=== PATIENT | female | born 1995 | race American Indian/Alaskan Native ===

== ENCOUNTER 2017-06-25 20:56 | Emergency (ER) | payer MEDICAID ==
[2017-06-25 21:37] VITALS: BP 142/79
--- NOTE | 2017-06-25 22:22 | EDM.PDOC ---
ED HPI GENERAL MEDICAL PROBLEM - General Chief Complaint: ENT Problem Stated Complaint: BROKEN TOOTH Time Seen by Provider: 06/25/17 22:22 Source of Information: Reports: Patient History Limitations: Reports: No Limitations - History of Present Illness INITIAL COMMENTS - FREE TEXT/NARRATIVE: pt arrived after breaking her upper left incisor. The tooth has a filling in it and looks frail. The gum above it is tender, Onset: Sudden Duration: Hour(s):, Other ( broken tooth) Location: Reports: Face Associated Symptoms: Reports: No Other Symptoms tooth Pain Score (Numeric/FACES): 4 - Related Data Allergies Allergy/AdvReac Type Severity Reaction Status Date / Time nortriptyline Allergy Hives Verified 06/25/17 21:59 Home Meds: Home Meds Albuterol [Ventolin HFA] 2 puff INH ASDIRECTED PRN 09/01/16 [History] Past Medical History Other HEENT History: History of strep throat many times each year. Respiratory History: Reports: Asthma Gastrointestinal History: Reports: Cholelithiasis Neurological History: Reports: Migraines Psychiatric History: Reports: Anxiety, Depression Endocrine/Metabolic History: Reports: Obesity/BMI 30+ - Past Surgical History HEENT Surgical History: Reports: Adenoidectomy, Myringotomy w Tube(s), Tonsillectomy GI Surgical History: Reports: Cholecystectomy Social & Family History - Family History Cardiac: Reports: Other (See Below) Other Cardiac Family History: mom is currently wearing a heart monitor because of some "episodes" Respiratory: Reports: Asthma : Reports: Renal Disease/Insufficiency OBGYN: Reports: Musculoskeletal: Reports: Arthritis Neurological: Reports: Vertigo Psychiatric: Reports: Bipolar Hematologic: Reports: Anemia Immunologic: Reports: SLE, Solid Organ Transplant Oncologic: Reports: Breast, Lymphoma, Uterine - Tobacco Use Smoking Status *Q: Current Every Day Smoker Years of Tobacco use: 1 Packs/Tins Daily: 0.5 Second Hand Smoke Exposure: No - Caffeine Use Caffeine Use: Reports: Soda - Recreational Drug Use Recreational Drug Use: No ED ROS ENT - Review of Systems Review Of Systems: See Below Constitutional: Reports: No Symptoms HEENT: Reports: Other (pt broke her upper left incisor. ) Respiratory: Reports: No Symptoms Cardiovascular: Reports: No Symptoms Endocrine: Reports: No Symptoms GI/Abdominal: Reports: No Symptoms : Reports: No Symptoms Musculoskeletal: Reports: No Symptoms Skin: Reports: No Symptoms ED EXAM, ENT - Physical Exam Exam: See Below Text/Narrative:: pt arrived with a painful left upper incisor. This broke in the pm. Exam Limited By: No Limitations General Appearance: Alert, Anxious, Mild Distress Ears: Normal TMs Nose: Normal Inspection Mouth/Throat: Other (pt broke her left upper incisor. The gum above the tooth looks quite red. ) Head: Atraumatic Neck: Normal Inspection Respiratory/Chest: No Respiratory Distress Cardiovascular: Regular Rate, Rhythm GI/Abdominal: Soft, Non-Tender Course - Vital Signs Last Recorded V/S: Last Vital Signs Temp 35.6 C 06/25/17 22:04 Pulse 76 06/25/17 22:04 Resp 16 06/25/17 22:04 BP 142/79 H 06/25/17 22:04 Pulse Ox 97 06/25/17 22:04 Departure - Departure Time of Disposition: 22:23 Disposition: Home, Self-Care 01 Condition: Fair Clinical Impression: Broken tooth - Discharge Information Instructions: Tooth Injuries, [id number] Referrals: PCP,None [Primary Care Provider] - Forms: ED Department Discharge Care Plan Goals: pt arrived with a broken tooth which looks quite frail-- appt tomorrow at the dental clinic. amoxicillin 500mg tid, norco 5/325 q6h prn for pain.
== END 2017-06-25 22:34 | disposition home or self-care (01) ==
LOC: JP.ED 20:56
DX: K03.81 Cracked tooth (principal); F17.210 Nicotine dependence, cigarettes, uncomplicated; J45.909 Unspecified asthma, uncomplicated; Z88.8 Allergy status to other drugs, medicaments and biological substances
CPT/HCPCS: 99283

== ENCOUNTER 2017-08-02 07:33 | Day surgery (SDC) | payer MEDICAID ==
[2017-08-02] MEDS ORDERED: Sodium Chloride 0.9% 1,000 ML IV SCH (08:00)
[2017-08-02] MEDS ORDERED: fentaNYL 100 MCG/2 ML SDV ONE (09:57)
[2017-08-02] MEDS ORDERED: Propofol 200 MG/20 ML SDV ONE (09:57)
[2017-08-02] MEDS ORDERED: Midazolam 1 MG/ML 2 ML SDV ONE (09:58)
--- NOTE | 2017-08-02 11:17 | OR ---
DATE OF PROCEDURE: 08/02/2017 PROCEDURE: Esophagogastroduodenoscopy. FINDINGS: 1. Very mild inflammation in the GE junction. 2. No other abnormalities. COMPLICATIONS: None. [employer] TESTING: None. ANESTHESIA: MAC. PREOPERATIVE DIAGNOSIS: Epigastric pain. POSTOPERATIVE DIAGNOSIS: Epigastric pain. RISKS: Risks, benefits, alternatives, limitations including, but not limited to infection, bleeding, and perforation were explained to the patient and her family and wished to proceed. PROCEDURE IN DETAIL: The patient was placed in the left lateral decubitus position. The EGD scope was introduced, advanced atraumatically to the second part of the duodenum. No duodenitis. No ulcers. No abnormality in the gastric cardia, body, or antrum. No gastritis. On retroflexion, there was no hiatal hernia. At the GE junction, there was very mild inflammation consistent with reflux disease. This was biopsied multiple times using cold biopsy forceps. The esophagus was normal. The patient tolerated the procedure well. James Shanks MD /[id number]
[2017-08-02 11:36] VITALS: BP 114/62
== END 2017-08-02 11:55 | disposition home or self-care (01) ==
LOC: JP.SDS 07:33
PROVIDERS: ATTEND Surgery
DX: K29.70 Gastritis, unspecified, without bleeding (principal); K20.9 Esophagitis, unspecified; J45.909 Unspecified asthma, uncomplicated; E66.9 Obesity, unspecified; F17.210 Nicotine dependence, cigarettes, uncomplicated; Z88.8 Allergy status to other drugs, medicaments and biological substances
CPT/HCPCS: 43239; J2250; J2704; J3010; J7040; 88305

== ENCOUNTER 2017-09-09 18:23 | Emergency (ER) | payer MEDICAID ==
[2017-09-09 18:42] VITALS: BP 115/58
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
== END 2017-09-09 19:10 | disposition home or self-care (01) ==
LOC: JP.ED 18:23
DX: S16.1XXA Strain of muscle, fascia and tendon at neck level, initial encounter (principal); S20.229A Contusion of unspecified back wall of thorax, initial encounter; S09.90XA Unspecified injury of head, initial encounter; Z88.8 Allergy status to other drugs, medicaments and biological substances; Z79.899 Other long term (current) drug therapy; F17.210 Nicotine dependence, cigarettes, uncomplicated; W00.0XXA Fall on same level due to ice and snow, initial encounter
CPT/HCPCS: 99283

== ENCOUNTER 2017-09-12 17:05 | Emergency (ER) | payer MEDICAID ==
[2017-09-12 17:22] VITALS: BP 149/77
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
== END 2017-09-12 18:02 | disposition home or self-care (01) ==
LOC: JP.ED 17:05
DX: S06.0X9A Concussion with loss of consciousness of unspecified duration, initial encounter (principal); J45.909 Unspecified asthma, uncomplicated; Z88.8 Allergy status to other drugs, medicaments and biological substances; Z79.899 Other long term (current) drug therapy; W19.XXXA Unspecified fall, initial encounter
CPT/HCPCS: 70450; 99284-25

== ENCOUNTER 2017-12-11 18:43 | Emergency (ER) | payer MEDICAID ==
[2017-12-11 18:56] VITALS: BP 123/61
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
[2017-12-11] MEDS ORDERED: Acetaminophen 500 MG Tab PO ONE (20:14)
== END 2017-12-11 20:59 | disposition home or self-care (01) ==
LOC: JP.ED 18:43
DX: M79.622 Pain in left upper arm (principal); M79.621 Pain in right upper arm; R23.0 Cyanosis; J45.909 Unspecified asthma, uncomplicated; K21.9 Gastro-esophageal reflux disease without esophagitis; F41.9 Anxiety disorder, unspecified; F32.9 Major depressive disorder, single episode, unspecified; E66.9 Obesity, unspecified; F17.210 Nicotine dependence, cigarettes, uncomplicated; Z79.899 Other long term (current) drug therapy; Z88.8 Allergy status to other drugs, medicaments and biological substances; Z87.440 Personal history of urinary (tract) infections; Z90.49 Acquired absence of other specified parts of digestive tract
CPT/HCPCS: 36415; 36600; 80048; 82803; 85025; 85379; 99284; A9270

== ENCOUNTER 2018-03-03 17:20 | Emergency (ER) | payer MEDICAID ==
[2018-03-03 17:26] VITALS: BP 135/47
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
--- NOTE | 2018-03-04 08:42 | CR ---
CHEST: 2 view CLINICAL HISTORY:Left rib injuries COMPARISON:10/23/2015 FINDINGS: Heart size and pulmonary vascular normal. No infiltrate effusion or pneumothorax is seen. No rib fractures identified on limited study.. IMPRESSION: No acute cardiopulmonary process
--- NOTE | 2018-03-04 09:14 | CR ---
Nasal Bone Min 3V CLINICAL HISTORY: Blunt trauma FINDINGS: No fractures identified. Paranasal sinuses are clear. Anterior nasal spine is intact. IMPRESSION: Negative
== END 2018-03-03 18:53 | disposition home or self-care (01) ==
LOC: JP.ED 17:20
DX: S29.9XXA Unspecified injury of thorax, initial encounter (principal); S50.12XA Contusion of left forearm, initial encounter; S50.11XA Contusion of right forearm, initial encounter; S80.11XA Contusion of right lower leg, initial encounter; S00.33XA Contusion of nose, initial encounter; F17.210 Nicotine dependence, cigarettes, uncomplicated; Z88.8 Allergy status to other drugs, medicaments and biological substances; Y04.0XXA Assault by unarmed brawl or fight, initial encounter
CPT/HCPCS: 70160; 70160-26; 71046; 71046-26; 99285

== ENCOUNTER 2019-02-17 23:57 | Emergency (ER) | payer MEDICAID ==
[2019-02-18] MEDS ORDERED: Ketorolac 60 MG/2 ML SDV IM ONE (00:39)
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
[2019-02-18 01:21] VITALS: BP 111/41
--- NOTE | 2019-02-18 03:11 | CRLCR ---
INDICATION: Chest pain TECHNIQUE: Chest radiograph 2 views COMPARISON: 03/03/18 FINDINGS: Mediastinum: The mediastinum is normal in appearance. The heart silhouette is normal in size and morphology. Lung: Both lungs are unremarkable in appearance. No sign of pleural effusion seen. No pneumothorax is identified. IMPRESSION: 1. No acute cardiopulmonary disease is seen. Dictated by: Gerald Zarate MD @ 02/18/2019 03:10:39 (Electronically Signed)
== END 2019-02-18 02:25 | disposition home or self-care (01) ==
LOC: JP.ED 23:57
DX: R07.89 Other chest pain (principal); F17.210 Nicotine dependence, cigarettes, uncomplicated; J45.909 Unspecified asthma, uncomplicated; K21.9 Gastro-esophageal reflux disease without esophagitis; Z79.899 Other long term (current) drug therapy; Z88.8 Allergy status to other drugs, medicaments and biological substances
CPT/HCPCS: 36415; 71046; 80053; 84484; 84703; 85025; 85379; 93005; 96372; 99285; J1885

== ENCOUNTER 2019-04-30 19:12 | Emergency (ER) | payer MEDICAID ==
[2019-04-30 19:45] VITALS: BP 122/69
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
== END 2019-04-30 19:55 | disposition home or self-care (01) ==
LOC: JP.ED 19:12
DX: L08.9 Local infection of the skin and subcutaneous tissue, unspecified (principal); F17.210 Nicotine dependence, cigarettes, uncomplicated; J45.909 Unspecified asthma, uncomplicated; E66.9 Obesity, unspecified; Z88.8 Allergy status to other drugs, medicaments and biological substances; Z79.51 Long term (current) use of inhaled steroids; Z98.890 Other specified postprocedural states; Z90.49 Acquired absence of other specified parts of digestive tract; Z68.41 Body mass index [BMI] 40.0-44.9, adult
CPT/HCPCS: 99282

== ENCOUNTER 2020-10-01 07:20 | Inpatient (IN) | payer MEDICAID ==
[2020-10-01] MEDS ORDERED: Misoprostol 50 MCG (1/2 of 100 MCG) Tab VAG ONE ×2 (07:31→13:10)
[2020-10-01] MEDS ORDERED: Sodium Chloride 0.9% 10 ML Syringe FLUSH PRN (08:12)
[2020-10-01] MEDS ORDERED: Penicillin G Potassium 5 MILLUNITS in Sodium Chloride 0.9% 100 ML IV ONE (08:30)
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
[2020-10-01] MEDS: Penicillin G Potassium 2.5 MILLUNITS in Sodium Chloride 0.9% 50 ML IV SCH ×3 (12:37→21:35)
--- NOTE | 2020-10-01 13:27 | PCM.PNLD ---
Labor Progress Note - VS & Meds Vital Signs: Last Vital Signs Temp 97.7 F 10/01/20 11:16 Pulse 52 L 10/01/20 11:16 Resp 18 10/01/20 11:16 BP 120/59 L 10/01/20 11:16 Pulse Ox 98 10/01/20 11:16 Active Medications: Current Medications Penicillin G Potassium 2.5 (millunits/ Sodium Chloride) 50 mls @ 100 mls/hr IV Q4H [place] Last Admin: 10/01/20 12:37 Dose: 100 mls/hr Documented by: Sodium Chloride (Saline Flush) 10 ml FLUSH ASDIRECTED PRN PRN Reason: Keep Vein Open Discontinued Medications Penicillin G Potassium 5 (millunits/ Sodium Chloride) 100 mls @ 200 mls/hr IV ONETIME ONE Stop: 10/01/20 08:59 Last Admin: 10/01/20 08:53 Dose: 200 mls/hr Documented by: Oxytocin/Sodium Chloride (Pitocin In Ns 20 Units/1,000 Ml) 20 unit in 1,000 mls @ 999 mls/hr IV ONETIME ONE; Protocol Stop: 10/01/20 11:00 Misoprostol (Cytotec) 50 mcg VAG ONETIME ONE Stop: 10/01/20 07:32 Last Admin: 10/01/20 08:23 Dose: 50 mcg Documented by: Misoprostol (Cytotec) 50 mcg VAG ONETIME ONE Stop: 10/01/20 13:11 Last Admin: 10/01/20 13:13 Dose: 50 mcg Documented by: - Uterine Contractions Uterine Monitoring Mode: External [place] Contraction Frequency (min): 1.5-2.5 Contraction Duration (sec): 50-60 Contraction Intensity: Mild to Moderate Uterine Resting Tone: Soft - Monitoring Monitor Mode: Doppler/Auscultation Heart Rate (FHR) Baseline: 125 Heart Rate (FHR) Variability: Moderate (6-25 bmp) Accelerations: Present, 15x15 Decelerations: None - Vaginal Exam Dilation (cm): 2 Effacement (Percent): 75 Station: 0 Cervical Position: Anterior Sterile Vaginal Exam Performed By: Megan Barba Vaginal Exam Comment: change since this morning. Baby is lower and cervix is anterior - Labor Progress (Free Text) Labor Progress: 10/01/20 Star has been up and about Has had two doses of PCN cervix starting to change anterior Plan repeat Miso dose at 50 mcg continue with ambulation after monitoring times one hour post dose. Plan for reassessment at 1730. AROM when able pain management per patient request Plan for vaginal delivery
[2020-10-01] MEDS ORDERED: fentaNYL 100 MCG/2 ML SDV IVPUSH PRN (18:33)
[2020-10-01] MEDS ORDERED: Ondansetron 4 MG/2 ML SDV IVPUSH PRN (19:54)
[2020-10-01] MEDS ORDERED: ePHEDrine 50 MG/ML SDV IVPUSH PRN (20:30)
[2020-10-01] MEDS ORDERED: Lactated Ringers 1,000 ML IV ONE (20:30)
--- NOTE | 2020-10-01 20:38 | PCM.PNLD ---
Labor Progress Note - VS & Meds Vital Signs: Last Vital Signs Temp 98.2 F 10/01/20 18:05 Pulse 70 10/01/20 18:57 Resp 18 10/01/20 18:57 BP 139/66 10/01/20 18:57 Pulse Ox 95 10/01/20 18:57 Active Medications: Current Medications Fentanyl (Sublimaze) 100 mcg IVPUSH Q1H PRN PRN Reason: Pain (moderate 4-6) Last Admin: 10/01/20 18:50 Dose: 100 mcg Documented by: Penicillin G Potassium 2.5 (millunits/ Sodium Chloride) 50 mls @ 100 mls/hr IV Q4H [place] Last Admin: 10/01/20 16:57 Dose: 100 mls/hr Documented by: Ondansetron HCl (Zofran) 4 mg IVPUSH Q4H PRN PRN Reason: Nausea/Vomiting Sodium Chloride (Saline Flush) 10 ml FLUSH ASDIRECTED PRN PRN Reason: Keep Vein Open Discontinued Medications Penicillin G Potassium 5 (millunits/ Sodium Chloride) 100 mls @ 200 mls/hr IV ONETIME ONE Stop: 10/01/20 08:59 Last Admin: 10/01/20 08:53 Dose: 200 mls/hr Documented by: Oxytocin/Sodium Chloride (Pitocin In Ns 20 Units/1,000 Ml) 20 unit in 1,000 mls @ 999 mls/hr IV ONETIME ONE; Protocol Stop: 10/01/20 11:00 Misoprostol (Cytotec) 50 mcg VAG ONETIME ONE Stop: 10/01/20 07:32 Last Admin: 10/01/20 08:23 Dose: 50 mcg Documented by: Misoprostol (Cytotec) 50 mcg VAG ONETIME ONE Stop: 10/01/20 13:11 Last Admin: 10/01/20 13:13 Dose: 50 mcg Documented by: - Uterine Contractions Uterine Monitoring Mode: External [place] Contraction Frequency (min): 1-3 Contraction Duration (sec): 50-70 Contraction Intensity: Moderate Uterine Resting Tone: Soft - Monitoring Monitor Mode: Doppler/Auscultation Heart Rate (FHR) Baseline: 125 Heart Rate (FHR) Variability: Moderate (6-25 bmp) Accelerations: Present, 15x15 Decelerations: None - Vaginal Exam Dilation (cm): 5 Effacement (Percent): 80 Station: 0 Cervical Position: Anterior Vaginal Exam Comment: SROM at approx 1800, clear fluid - Labor Progress (Free Text) Labor Progress: active labor now requesting an epidural for back labor Cat one strip, baseline FHT 140 Planning for vaginal delivery
[2020-10-01] MEDS ORDERED: Ropivacaine 100 ML ONE (21:36)
--- NOTE | 2020-10-02 00:22 | PCM.PNLD ---
Labor Progress Note - VS & Meds Vital Signs: Last Vital Signs Temp 98.2 F 10/01/20 18:05 Pulse 51 L 10/01/20 22:15 Resp 18 10/01/20 22:15 BP 111/52 L 10/01/20 22:15 Pulse Ox 98 10/01/20 22:15 Active Medications: Current Medications Ephedrine Sulfate (Ephedrine Sulfate) 10 mg IVPUSH ASDIRECTED PRN PRN Reason: Hypotension Fentanyl (Sublimaze) 100 mcg IVPUSH Q1H PRN PRN Reason: Pain (moderate 4-6) Last Admin: 10/01/20 18:50 Dose: 100 mcg Documented by: Penicillin G Potassium 2.5 (millunits/ Sodium Chloride) 50 mls @ 100 mls/hr IV Q4H [place] Last Admin: 10/01/20 21:35 Dose: 100 mls/hr Documented by: Ondansetron HCl (Zofran) 4 mg IVPUSH Q4H PRN PRN Reason: Nausea/Vomiting Last Admin: 10/01/20 20:36 Dose: 4 mg Documented by: Sodium Chloride (Saline Flush) 10 ml FLUSH ASDIRECTED PRN PRN Reason: Keep Vein Open Discontinued Medications Penicillin G Potassium 5 (millunits/ Sodium Chloride) 100 mls @ 200 mls/hr IV ONETIME ONE Stop: 10/01/20 08:59 Last Admin: 10/01/20 08:53 Dose: 200 mls/hr Documented by: Oxytocin/Sodium Chloride (Pitocin In Ns 20 Units/1,000 Ml) 20 unit in 1,000 mls @ 999 mls/hr IV ONETIME ONE; Protocol Stop: 10/01/20 11:00 Lactated Ringer's (Ringers, Lactated) 1,000 mls @ 999 mls/hr IV ONETIME ONE Stop: 10/01/20 21:30 Last Admin: 10/01/20 20:30 Dose: 999 mls/hr Documented by: Ropivacaine (Naropin 0.2%) Confirm Administered Dose 100 mls @ as directed .ROUTE .STK-MED ONE Stop: 10/01/20 21:37 Misoprostol (Cytotec) 50 mcg VAG ONETIME ONE Stop: 10/01/20 07:32 Last Admin: 10/01/20 08:23 Dose: 50 mcg Documented by: Misoprostol (Cytotec) 50 mcg VAG ONETIME ONE Stop: 10/01/20 13:11 Last Admin: 10/01/20 13:13 Dose: 50 mcg Documented by: - Uterine Contractions Uterine Monitoring Mode: External [place] Contraction Frequency (min): 2-3 Contraction Duration (sec): 50-60 Contraction Intensity: Moderate Uterine Resting Tone: Soft - Monitoring Monitor Mode: Doppler/Auscultation Heart Rate (FHR) Baseline: 125 Heart Rate (FHR) Variability: Moderate (6-25 bmp) Accelerations: Present, 15x15 Decelerations: None - Vaginal Exam Dilation (cm): 10 Effacement (Percent): 100 Station: 2 Cervical Position: Anterior Sterile Vaginal Exam Performed By: Megan Barba Vaginal Exam Comment: complete with a fair amount of bleeding - Labor Progress (Free Text) Labor Progress: started pushing with a fair amount of bleeding vaginally. Fetus unable to total pushing. heart tones dropped to the 90's for 3 minutes twice. O2 to mom positioned off her back. Stopped pushing and called a c section for concerns for placental abruption and compromise. OR crew notified.
[2020-10-02] MEDS ORDERED: fentaNYL 250 MCG/5 ML SDV ONE (00:28)
[2020-10-02] MEDS ORDERED: Succinylcholine 200 MG/10 ML MDV ONE (00:29)
[2020-10-02] MEDS ORDERED: Propofol 200 MG/20 ML SDV ONE (00:29)
[2020-10-02] MEDS ORDERED: Oxytocin 10 Units/1 ML SDV ONE ×2 (00:29→00:33)
[2020-10-02] MEDS ORDERED: Rocuronium 50 MG/5 ML Vial ONE (00:52)
[2020-10-02] MEDS ORDERED: Glycopyrrolate 0.2 MG/ML 5 ML MDV ONE (00:52)
[2020-10-02] MEDS ORDERED: Dexamethasone 4 MG/ML SDV ONE (00:52)
[2020-10-02] MEDS ORDERED: Neostigmine Methylsulfate 1 MG/ML 5 ML Syringe ONE (00:52)
[2020-10-02] MEDS ORDERED: Ondansetron 4 MG/2 ML SDV ONE (00:52)
[2020-10-02] MEDS ORDERED: Sodium Chloride 0.9% 10 ML ONE (00:57)
[2020-10-02] MEDS ORDERED: ceFAZolin 1 GM Vial ONE (00:57)
[2020-10-02] MEDS ORDERED: Morphine PF 10 MG/10 ML SDV ONE (01:15)
[2020-10-02] MEDS ORDERED: diphenhydrAMINE 50 MG/ML SDV IVPUSH PRN (01:33)
[2020-10-02] MEDS ORDERED: Simethicone 80 MG Tab.Chew PO PRN (01:33)
[2020-10-02] MEDS ORDERED: Witch Hazel Medicated Pads 100/Jar TOP ONE (01:33)
[2020-10-02] MEDS ORDERED: Bisacodyl 10 MG Supp RECTAL PRN (01:33)
[2020-10-02] MEDS ORDERED: Lanolin 100% Cream 40 GM Tube TOP ONE (01:33)
[2020-10-02] MEDS ORDERED: Naloxone 0.4 MG/ML SDV IVPUSH PRN (01:33)
[2020-10-02] MEDS ORDERED: Benzocaine 20% Top Spray 56 GM Bottle TOP ONE (01:33)
[2020-10-02] MEDS ORDERED: ePHEDrine 50 MG/ML SDV IVPUSH PRN (01:33)
[2020-10-02] MEDS ORDERED: Ondansetron 4 MG Tab.DIS PO PRN (01:33)
[2020-10-02] MEDS ORDERED: fentaNYL 100 MCG/2 ML SDV IVPUSH PRN (01:36)
--- NOTE | 2020-10-02 04:18 | ANES ---
DATE OF SERVICE: 10/01/2020 INDICATIONS: Shivam is a 24-year-old female patient of Madai Barba in our Obstetrics Unit. I was consulted to assess the patient for labor epidural. Upon arrival, I found a healthy 24-year-old female. I reviewed patient history as well as lab work. Found no contraindications to epidural. Discussed with her risks and benefits of the procedure. She was okay to proceed and consent was received. DESCRIPTION OF PROCEDURE: I had her seated at the edge of the bed. Betadine prep x3 to lumbar region. Sterile drape was placed. 1% lidocaine skin wheal as well as deep at the L3- 4 region. A 17-gauge Tuohy was placed with loss of resistance. Negative CSF, negative heme, negative paresthesia. I inserted a silicone catheter to 14 cm. Test dose was given. 3 mL of 1.5% lidocaine and 1:200,000 epinephrine. The catheter was then secured after negative sequelae with the test dose. I placed the patient in supine position. Dosed her with 12 mL of 0.2% ropivacaine and began an infusion of that same 0.2% ropivacaine. She tolerated the procedure quite well. Please refer to nurse's notes for vital signs and neuro status, which are unchanged throughout the procedure. I reported off to the nurse the procedure and the dose. Again, she tolerated the procedure quite well. Adam Palomino CRNA /[id number]
[2020-10-02] MEDS: Penicillin G Potassium 2.5 MILLUNITS in Sodium Chloride 0.9% 50 ML IV SCH (04:39)
[2020-10-02] MEDS ORDERED: Morphine PF 150 MG/30 ML PCA Syringe IV PRN (05:15)
[2020-10-02] MEDS ORDERED: Naloxone 0.4 MG/ML SDV IV PRN (06:00)
[2020-10-02] MEDS ORDERED: Lanolin 100% Cream 40 GM Tube TOP PRN (07:10)
[2020-10-02] MEDS ORDERED: Witch Hazel Medicated Pads 100/Jar TOP PRN (07:11)
[2020-10-02] MEDS: Prenatal Multivitamin with Calcium/Folic Acid/Iron Tab PO SCH (14:20)
[2020-10-02] MEDS: Acetaminophen/HYDROcodone 325-5 MG Tab PO PRN (16:10)
[2020-10-02] MEDS: Ibuprofen 800 MG Tab PO PRN (16:11)
[2020-10-03] MEDS: Acetaminophen/HYDROcodone 325-5 MG Tab PO PRN ×3 (02:55→19:12)
[2020-10-03] MEDS: Ibuprofen 800 MG Tab PO PRN ×2 (07:21→21:55)
--- NOTE | 2020-10-03 08:13 | OR ---
DATE OF PROCEDURE: 10/02/2020 SURGEON: James Shanks MD PROCEDURE: section with aftercare. COMPLICATION: None. MANAGER PROVIDER RELATIONS: Madai Barba CNM. PREOPERATIVE DIAGNOSES: Vaginal bleeding, concern for failure to thrive with baby. POSTOPERATIVE DIAGNOSES: Vaginal bleeding, concern for failure to thrive with baby. RISKS: Risks, benefits, alternatives, and limitations including, but not limited to infection, bleeding, injury to baby, bladder, mother, intestines, chronic wounds, chronic pain, and other risks not listed here were explained to the patient and she wishes to proceed. PROCEDURE IN DETAIL: The patient was placed in supine position. This approach would be a classic Pfannenstiel type approach. Due to the emergent nature of this case, the patient was generally intubated. She then underwent a rapid in a classic Pfannenstiel type approach with a 15 blade using to cut the skin, electrocautery down and through the external oblique. The perineum entered sharply with Metzenbaum scissors. A muscle-sparing technique was performed. Kochers were also used to very quickly elevate the fascia prior to the rectus being spread. The bladder was identified and deflected away from the uterus. The uterus was then opened bluntly. Fluid was noted. Uterus was then opened with bandage scissors. Baby was delivered without difficulty in approximately less than 1 to 2 minutes. Once the baby was delivered, the cord was clamped and cut. Pitocin was given. Uterus was then reconstructed in 3 layers of #1 Vicryl suture in a running locked type fashion. After this, the rectus muscles were reapproximated using #1 Vicryl suture. The fascia was closed with #1 Vicryl suture in a running fashion after being thoroughly irrigated. Subcutaneous tissues were closed with 3-0 Vicryl and skin was closed with 4-0 Vicryl. Of note, the uterus had been inspected when this was opened for any evidence of retained placental material after the placenta was removed, none was noted. This was inspected for bleeding. Bleeding was very minimal. The patient tolerated the procedure well. James Shanks MD /[id number]
--- NOTE | 2020-10-03 09:34 | US ---
BPP wo NST INDICATION: well being prior to induction COMPARISON: None FINDINGS: Single live IUP heart rate: 125 BPM. Biophysical profile score: 8/8. PANKAJ: 13.0 cm. IMPRESSION: Normal biophysical profile score of 8/8.
--- NOTE | 2020-10-03 10:15 | PN ---
DATE OF SERVICE: 10/03/2020 SUBJECTIVE: The patient is doing well. Pain is well controlled. No nausea, vomiting, shortness of breath, or chest pain. OBJECTIVE: VITAL SIGNS: Stable, afebrile per nursing report. CARDIOVASCULAR: Regular rhythm and rate. RESPIRATORY: Lungs clear to auscultation bilaterally. SKIN: Incision healing well. ASSESSMENT: Status post section. PLAN: The patient will continue to work on advancing diet and activity. Anticipate discharge in the next 48 hours. No specific concerns per the patient and myself. James Shanks MD /[id number]
[2020-10-03] MEDS: Prenatal Multivitamin with Calcium/Folic Acid/Iron Tab PO SCH (11:26)
[2020-10-04] MEDS: Ibuprofen 800 MG Tab PO PRN ×2 (08:12→21:07)
[2020-10-04] MEDS: Prenatal Multivitamin with Calcium/Folic Acid/Iron Tab PO SCH (10:30)
--- NOTE | 2020-10-04 10:42 | PN ---
DATE OF SERVICE: 10/04/2020 SUBJECTIVE: Patient is doing well. Pain is well controlled. No nausea, vomiting, shortness of breath, or chest pain. Incision healing. OBJECTIVE: VITAL SIGNS: Stable. She is afebrile. Incisions healing well. ASSESSMENT AND PLAN: Status post . PLAN: The patient will be discharged probably in the next 24 hours. Having bowel movements. Pain is well controlled. No concerns at this time. James Shanks MD /[id number]
[2020-10-04] MEDS: Acetaminophen/HYDROcodone 325-5 MG Tab PO PRN (21:08)
[2020-10-05] MEDS: Ibuprofen 800 MG Tab PO PRN (05:05)
[2020-10-05 09:38] VITALS: BP 124/54; PULSE 72
[2020-10-05] MEDS: Prenatal Multivitamin with Calcium/Folic Acid/Iron Tab PO SCH (11:24)
== END 2020-10-05 12:07 | disposition home or self-care (01) | DRG 788 ==
LOC: JP.OB 07:20 → OBSVTOIN 10-02 00:52 → JP.MS 10-02 02:30
PROVIDERS: ADMIT Nurse Practitioner Family; ATTEND Surgery
PROC: 10D00Z0 Extraction of Products of Conception, High, Open Approach (ICD-10-PCS; principal; 2020-10-02)
DX: O99.52 Diseases of the respiratory system complicating childbirth (principal); J45.909 Unspecified asthma, uncomplicated; O99.62 Diseases of the digestive system complicating childbirth; K21.9 Gastro-esophageal reflux disease without esophagitis; O99.214 Obesity complicating childbirth; E66.9 Obesity, unspecified; O99.824 Streptococcus B carrier state complicating childbirth; Z20.822 Contact with and (suspected) exposure to COVID-19; Z87.440 Personal history of urinary (tract) infections; Z90.49 Acquired absence of other specified parts of digestive tract
CPT/HCPCS: 36415; 51702; 59409; 76819; 76819-26; 80048; 80305-QW; 81003; 84112; 85025; 86850; 86900; 86901; 86920; 86922; 88307; 99211; A9270-GY; J0330; J0690; J1100; J1200; J2270; J2405; J2540; J2590; J2704; J2710; J2795; J3010; J3490; J7120; U0002

== ENCOUNTER 2020-10-07 16:27 | Emergency (ER) | payer MEDICAID ==
[2020-10-07 17:09] VITALS: BP 142/72; PULSE 73
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
== END 2020-10-07 18:20 | disposition home or self-care (01) ==
LOC: JP.ED 16:27
DX: O90.0 Disruption of cesarean delivery wound (principal); O99.53 Diseases of the respiratory system complicating the puerperium; J45.909 Unspecified asthma, uncomplicated; O99.215 Obesity complicating the puerperium; E66.9 Obesity, unspecified; Z88.8 Allergy status to other drugs, medicaments and biological substances; Z79.899 Other long term (current) drug therapy
CPT/HCPCS: 99282

== ENCOUNTER 2021-07-06 13:10 | Emergency (ER) | payer MEDICAID ==
[2021-07-06 13:35] VITALS: BP 125/67; PULSE 88
[2021-07-06] MEDS ORDERED: Bacitracin Oint 1 GM U/D Packet TOP ONE (13:56)
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
[2021-07-06] MEDS ORDERED: Diphtheria,Pertussis(Acell),Tetanus Vaccine 0.5 ML Syringe IM ONE (14:41)
== END 2021-07-06 14:58 | disposition home or self-care (01) ==
LOC: JP.ED 13:10
DX: S61.213A Laceration without foreign body of left middle finger without damage to nail, initial encounter (principal); S61.212A Laceration without foreign body of right middle finger without damage to nail, initial encounter; E66.9 Obesity, unspecified; Z68.41 Body mass index [BMI] 40.0-44.9, adult; Z88.8 Allergy status to other drugs, medicaments and biological substances; Z79.899 Other long term (current) drug therapy; Z23 Encounter for immunization; W26.8XXA Contact with other sharp object(s), not elsewhere classified, initial encounter
CPT/HCPCS: 12002; 90471; 90715; 99282-25

== ENCOUNTER 2022-02-13 07:27 | Emergency (ER) | payer MEDICAID ==
[2022-02-13 07:42] VITALS: BP 108/57; PULSE 58
== END 2022-02-13 09:30 | disposition home or self-care (01) ==
LOC: JP.ED 07:27
DX: J32.9 Chronic sinusitis, unspecified (principal); E66.9 Obesity, unspecified; Z68.41 Body mass index [BMI] 40.0-44.9, adult; Z88.8 Allergy status to other drugs, medicaments and biological substances
CPT/HCPCS: 36415; 84443; 85025; 86140; 99282; 99283

== ENCOUNTER 2022-11-10 03:03 | Emergency (ER) | payer MEDICAID ==
[2022-11-10 04:27] VITALS: BP 117/69; PULSE 98
== END 2022-11-10 04:29 | disposition home or self-care (01) ==
LOC: JP.ED 03:03
DX: S93.492A Sprain of other ligament of left ankle, initial encounter (principal); S90.02XA Contusion of left ankle, initial encounter; J45.909 Unspecified asthma, uncomplicated; E66.9 Obesity, unspecified; Z68.39 Body mass index [BMI] 39.0-39.9, adult; Z88.8 Allergy status to other drugs, medicaments and biological substances; Z79.899 Other long term (current) drug therapy; W00.0XXA Fall on same level due to ice and snow, initial encounter; Y93.01 Activity, walking, marching and hiking
CPT/HCPCS: 73610-26-LT; 73610-LT; 99283